=== PATIENT | female | born 1990 | race Caucasian/White ===

== ENCOUNTER 2017-03-20 09:38 | Inpatient (IN) | payer OTHER ==
[~2017-03-20] VITALS: Ht 160 cm; Wt 96.6 kg
[2017-03-20] VITALS (26 sets, daily range): BP systolic 97–153; BP diastolic 55–87
[~2017-03-20 09:38] MED LIST: ENDOCET 5-3251 EACH PO; Motrin PO; NATALCARE RX1 TABLE1 PO; Percocet 5/325,Endoc PO
[2017-03-20 11:36] LABS: EOSINOPHIL (%) 1.3 % (0-5); EOSINOPHIL COUNT 0.2 K/uL (0-0.3); HEMATOCRIT 33.3 % (36.0-46.0); IMMATURE GRANULOCYTE (%) 1.5 % (0.0-0.7); IMMATURE GRANULOCYTE COUNT 0.2 K/uL; INSTRUMENT ABS NEUTROPHIL CT 10.3 K/uL; LYMPHOCYTE COUNT 2.6 K/uL (1.0-2.8); MCH 30.5 PG (29.0-34.0); MCHC 35.1 G/DL (30.0-36.0); MCV 86.7 FL (83-99); MEAN PLAT.VOLUME 10.1 uM^3 (9.5-12.4); MONOCYTE (%) 7.5 % (3-12); MONOCYTE COUNT 1.1 K/uL (0-0.8); NEUTROPHIL (%) 71.4 % (45-76); NEUTROPHIL COUNT 10.3 K/uL (1.8-6.4); PLATELET COUNT 221 K/uL (156-360); RBC DIS.WIDTH-CV 13.2 % (11.8-14.6); RED BLOOD COUNT 3.84 M/uL (3.80-5.20); WHITE BLOOD COUNT 14.4 K/uL (4.1-10.2)
[2017-03-20 12:21] LABS: ALKALINE PHOSPHATASE 118 IU/L (3-129); ANION GAP 11 MEQ/L (2-14); CHLORIDE 103 MEQ/L (99-109); GFR ESTIMATE (CALCULATED) > 59 mL/min/; GLUCOSE 122 mg/dL (70-99); POTASSIUM 3.8 MEQ/L (3.7-5.4); SAMPLE HEMOLYSIS CHECK 0; SAMPLE ICTERIC CHECK 0; SAMPLE LIPEMIA CHECK 0; SODIUM 136 MEQ/L (136-147); TOTAL BILIRUBIN 0.3 MG/DL (0.0-1.0); UREA NITROGEN (BUN) 7 mg/dL (9-23)
[2017-03-20 12:37] LABS: AMPHETAMINES QUANT VALUE 0 NG/ML; BARBITUATES QUANT VALUE 0 NG/ML; BENZODIAZEPINES QUANT VALUE 0 NG/ML; BENZODIAZEPINES, URINE SCREEN Negative (200 ng/mL); OPIATES QUANTITATIVE VALUE 0 NG/ML; PHENCYCLIDINE QUANT VALUE 0 NG/ML
[2017-03-20] MEDS ORDERED: PRENATAL TABLE1 EAC3 PO (15:11)
[2017-03-21 01:00] VITALS: BP 114/58
[2017-03-21 02:07] VITALS: BP 112/62
[2017-03-21 07:15] VITALS: BP 148/83
[2017-03-21] MEDS ORDERED: MOTRIN800 MG PO (09:28)
[2017-03-21 19:58] LABS: Cytomegalovirus IgM Antibody+ <30.00 AU/mL (<30.00)
[2017-03-22 18:24] LABS: RUBELLA VIRUS IgM (ACUTE) ABY+ <20.00 AU/mL (<20.00)
[2017-03-23 15:05] LABS: TOXOPLASMA IgM (ACUTE ONLY)+ Negative (Negative)
[2017-03-24 20:55] LABS: HSV 1 IgM Screen Negative (Negative); HSV 2 IgM Screen Negative (Negative)
== END 2017-03-21 12:05 | disposition home or self-care (01) | DRG 775 ==
LOC: LDRP-OP 09:38 → 2WEST 09:39 → LDRP-OP 04-09 12:29
PROVIDERS: Midwife; Obstetrics & Gynecology
PROC: 10E0XZZ Delivery of Products of Conception, External Approach (ICD-10-PCS; principal; 2017-03-20)
PROC: 3E033VJ Introduction of Other Hormone into Peripheral Vein, Percutaneous Approach (ICD-10-PCS; principal; 2017-03-20)
PROC: 3E0R3CZ (ICD-10-PCS; 2017-03-20)
PROC: 00HU33Z Insertion of Infusion Device into Spinal Canal, Percutaneous Approach (ICD-10-PCS; 2017-03-20)
DX: O36.4XX0 Maternal care for intrauterine death, not applicable or unspecified (principal); Z37.1 Single stillbirth; O99.324 Drug use complicating childbirth; O99.12 Other diseases of the blood and blood-forming organs and certain disorders involving the immune mechanism complicating childbirth; O99.344 Other mental disorders complicating childbirth; O26.62 Liver and biliary tract disorders in childbirth; O48.0 Post-term pregnancy; F41.9 Anxiety disorder, unspecified; F19.10 Other psychoactive substance abuse, uncomplicated; Z3A.41 41 weeks gestation of pregnancy
CPT/HCPCS: 76815; 80053; 80306 90; 81240 90; 83090 90; 84443; 85025; 85240 90; 85300 90; 85303 90; 85305 90; 85306 90; 85384; 85460; 85610; 85613 90; 85730; 85730 90; 86146 90; 86147 90; 86645 90; 86762 90; 86778 90; 88307; C1755; J1050; J2405; J2795; J3010; J7120